=== PATIENT | female | born 1970 | race African-American/Black ===

== ENCOUNTER 2017-06-19 12:15 | Emergency (ER) | payer OTHER ==
[~2017-06-19] VITALS: Ht 170.2 cm; Wt 95.0 kg
[2017-06-19 12:36] VITALS: BP 110/84
== END 2017-06-19 18:33 | disposition left against medical advice (07) ==
LOC: ER 13:14
DX: L02.11 Cutaneous abscess of neck (principal); H60.01 Abscess of right external ear; F17.210 Nicotine dependence, cigarettes, uncomplicated
CPT/HCPCS: 99281